=== PATIENT | male | born 1970 | race Caucasian/White ===

== ENCOUNTER 2021-02-28 15:54 | Emergency (ER) | payer MEDICAID ==
[~2021-02-28] VITALS: Ht 180.3 cm; Wt 95.3 kg
[2021-02-28 16:30] VITALS: BP 144/86
--- NOTE | 2021-02-28 16:30 | NUR ---
[facility] GIRLFRIEND C/O R LOWER ABDOMINAL BUMP "MY HERNIA IS GETTING WORSE". AOX4, NO SOB, NO S/O ANY ACUTE DISTRESS NOTED. DENIES PAIN. PATIENT KEPT COMFORTABLE. SAFETY PRECAUTIONS IN PLACE. WILL CONTINUE TO MONITOR
--- NOTE | 2021-02-28 16:41 | NUR ---
Patient discharged to home in stable condition. Written and verbal after care instructions given. Patient verbalizes understanding of instruction.
== END 2021-02-28 16:55 | disposition home or self-care (01) ==
LOC: ER 15:57
DX: K40.90 Unilateral inguinal hernia, without obstruction or gangrene, not specified as recurrent (principal); F19.10 Other psychoactive substance abuse, uncomplicated; F12.90 Cannabis use, unspecified, uncomplicated

== ENCOUNTER 2023-10-10 23:29 | Emergency (ER) | payer OTHER ==
[~2023-10-10] VITALS: Ht 180.3 cm; Wt 86.2 kg
[2023-10-10 23:41] VITALS: TEMP 98.1
[2023-10-11] MEDS ORDERED: ACETAMINOPHEN ES 500 MG TABLET ONE (00:08)
[2023-10-11] MEDS ORDERED: IBUPROFEN 600 MG TABLET ONE (00:09)
[2023-10-11] MEDS: ACETAMINOPHEN ES 500 MG TABLET PO ONE (00:11)
[2023-10-11] MEDS: IBUPROFEN 600 MG TABLET PO ONE (00:11)
[2023-10-11] MEDS ORDERED: IBUP-1957 PO (02:01)
[2023-10-11] MEDS ORDERED: ACET-2605 PO (02:01)
[2023-10-11 02:31] VITALS: BP 138/68; O2SAT 99
== END 2023-10-11 02:31 | disposition home or self-care (01) ==
LOC: ER 23:29
DX: S82.831A Other fracture of upper and lower end of right fibula, initial encounter for closed fracture (principal); F17.200 Nicotine dependence, unspecified, uncomplicated; W01.0XXA Fall on same level from slipping, tripping and stumbling without subsequent striking against object, initial encounter; Y93.89 Activity, other specified; Y92.89 Other specified places as the place of occurrence of the external cause; Y99.8 Other external cause status
CPT/HCPCS: 73610-TC; 73630-TC

== ENCOUNTER 2024-04-22 17:47 | Inpatient (IN) | payer OTHER ==
[~2024-04-22] VITALS: Ht 180.3 cm; Wt 88.2 kg
[~2024-04-22 17:47] MED LIST: ACET-2605 PO; IBUP-1957 PO
[2024-04-22 20:07] LABS: BASOPHILS % (AUTO) 0.3 % (0.0-2.0); EOSINOPHILS # (AUTO) 0.1 K/uL (0.0-0.7); EOSINOPHILS % (AUTO) 0.8 % (0.0-6.0); HEMATOCRIT 41 % (39-51); HEMOGLOBIN 13.7 g/dL (13.5-17.5); LYMPHOCYTES # (AUTO) 1.2 K/uL (0.8-4.8); LYMPHOCYTES % (AUTO) 15.2 % (20.0-44.0); MEAN CORPUSCULAR HEMOGLOBIN 31 PG (26.0-33.0); MEAN CORPUSCULAR HGB CONC 34 g/dl (31.0-36.0); MEAN CORPUSCULAR VOLUME 94 fL (80-96); MONOCYTES # (AUTO) 0.8 K/uL (0.1-1.30); NEUTROPHILS # (AUTO) 5.7 K/uL (1.8-8.9); NEUTROPHILS % (AUTO) 73.7 % (43.0-81.0); PLATELET COUNT (AUTO) 138 K/uL (150-450); RED BLOOD CELL COUNT(AUTO) 4.37 MIL/uL (4.5-6.0); RED CELL DISTRIBUTION WIDTH 14.2 % (11.5-15.0); WHITE BLOOD COUNT (AUTO) 7.7 K/uL (4.3-11.0)
[2024-04-22 20:20] LABS: ALBUMIN 3.1 g/dL (3.4-5.0); BILIRUBIN,DIRECT 0.2 mg/dL (0.0-0.2); BILIRUBIN,TOTAL 0.9 mg/dL (0.2-1.0); CALCIUM, SERUM 8.4 mg/dL (8.5-10.1); POTASSIUM 5.3 mmol/L (3.5-5.1)
[2024-04-22 20:23] LABS: CREATININE 15.6 mg/dL (0.6-1.3)
[2024-04-22 20:39] LABS: APPEARANCE,URINE CLEAR (CLEAR); BILIRUBIN,URINE NEGATIVE (NEGATIVE); BLOOD, URINE 3+ Ery/uL (NEGATIVE); COLOR,URINE YELLOW (YELLOW); KETONES,URINE NEGATIVE (NEGATIVE); LEUKOCYTE ESTERASE ,URINE NEGATIVE (NEGATIVE); NITRITE, URINE NEGATIVE (NEGATIVE); PROTEIN,URINE NEGATIVE (NEGATIVE); UGLUCOSE NEGATIVE (NEGATIVE); UROBILINOGEN,URINE 0.2 EU/dL (0.2)
[2024-04-22 20:50] LABS: MAGNESIUM 2.7 mg/dL (1.8-2.4)
[2024-04-22 20:55] LABS: PHOSPHORUS 11.1 mg/dL (2.5-4.9)
[2024-04-22] MEDS: IV NS 0.9% 1,000 ML BAG IV ONE (21:20)
[2024-04-22 21:21] LABS: RBC,URINE 51-80 /HPF (0-2)
[2024-04-22 21:22] LABS: ADD URINE CULTURE NO; BACTERIA,URINE None seen /HPF (None Seen); SQUAMOUS EPITHELIAL CELL,UR 0-2 /HPF (None Seen); WBC,URINE 0-2 /HPF (0-3)
[2024-04-22] MEDS ORDERED: ACETAMINOPHEN 325 MG TABLET PO PRN (22:30)
[2024-04-22] MEDS ORDERED: Z GUARD REMEDY 4 OZ OINT TP PRN (22:30)
[2024-04-22] MEDS ORDERED: MAG HYDROX/AL HYDROX/SIMETH 30 ML UDC PO PRN (22:30)
[2024-04-22] MEDS ORDERED: MAGNESIUM HYDROXIDE 30 ML UDC PO PRN (22:30)
[2024-04-22 22:58] VITALS: BP 146/76; TEMP 97.5; O2SAT 100
[2024-04-22] MEDS: TAMSULOSIN 0.4 MG CAP.SR.24H PO ONE (23:09)
[2024-04-22] MEDS: IV NS 0.9% 1,000 ML IV SCH (23:09)
[2024-04-22] MEDS: ONDANSETRON HCL/PF 4 MG/2 ML VIAL IVP PRN (23:10)
[2024-04-22] MEDS: HYDROMORPHONE 1 MG/1 ML DISP.SYRIN IV PRN (23:29)
[2024-04-23] MEDS: HYDROCODONE/APAP 5/325MG TABLET PO PRN (02:23)
[2024-04-23 04:51] VITALS: BP 122/68; TEMP 97.7; O2SAT 98
[2024-04-23 06:37] LABS: BASOPHILS % (AUTO) 0.2 % (0.0-2.0); EOSINOPHILS % (AUTO) 0.3 % (0.0-6.0); HEMATOCRIT 39 % (39-51); HEMOGLOBIN 13.1 g/dL (13.5-17.5); LYMPHOCYTES # (AUTO) 1.2 K/uL (0.8-4.8); LYMPHOCYTES % (AUTO) 14.7 % (20.0-44.0); MEAN CORPUSCULAR HEMOGLOBIN 32 PG (26.0-33.0); MEAN CORPUSCULAR HGB CONC 34 g/dl (31.0-36.0); MEAN CORPUSCULAR VOLUME 93 fL (80-96); MONOCYTES # (AUTO) 0.8 K/uL (0.1-1.30); MONOCYTES % (AUTO) 10.5 % (2.0-12.0); NEUTROPHILS # (AUTO) 5.9 K/uL (1.8-8.9); NEUTROPHILS % (AUTO) 74.3 % (43.0-81.0); PLATELET COUNT (AUTO) 130 K/uL (150-450); RED BLOOD CELL COUNT(AUTO) 4.17 MIL/uL (4.5-6.0); RED CELL DISTRIBUTION WIDTH 14.2 % (11.5-15.0); WHITE BLOOD COUNT (AUTO) 7.9 K/uL (4.3-11.0)
[2024-04-23 06:51] LABS: CALCIUM, SERUM 8.2 mg/dL (8.5-10.1); CREATININE 5.2 mg/dL (0.6-1.3); MAGNESIUM 2.7 mg/dL (1.8-2.4); PHOSPHORUS 4.4 mg/dL (2.5-4.9); POTASSIUM 4.7 mmol/L (3.5-5.1)
[2024-04-23 08:00] VITALS: BP 119/51; TEMP 98.2; O2SAT 96
[2024-04-23] MEDS ORDERED: TAMS-12 PO (08:54)
[2024-04-23] MEDS: POLYETHYLENE GLYCOL 3350 17 GM POWD.PACK PO SCH (09:00)
[2024-04-23 12:00] VITALS: BP 125/68; TEMP 97.9; O2SAT 98
[2024-04-23] MEDS: CITRIC ACID/SODIUM CITRATE (BICITRA)15 ML UDC PO SCH (13:39)
[2024-04-23 16:00] VITALS: BP 130/66; TEMP 98.2; O2SAT 98
[2024-04-23] MEDS: IV NS 0.9% 1,000 ML IV PRN (16:52)
[2024-04-23] MEDS: SUCRALFATE 1 G TABLET PO SCH (16:52)
[2024-04-23 20:00] VITALS: BP 138/78; TEMP 98.4; O2SAT 97
[2024-04-24] VITALS: BP 150/79; TEMP 98.6; O2SAT 99
[2024-04-24 07:01] LABS: BASOPHILS % (AUTO) 0.2 % (0.0-2.0); EOSINOPHILS # (AUTO) 0.1 K/uL (0.0-0.7); EOSINOPHILS % (AUTO) 1.4 % (0.0-6.0); HEMATOCRIT 39 % (39-51); HEMOGLOBIN 13.1 g/dL (13.5-17.5); LYMPHOCYTES # (AUTO) 1.9 K/uL (0.8-4.8); LYMPHOCYTES % (AUTO) 30.7 % (20.0-44.0); MEAN CORPUSCULAR HEMOGLOBIN 31 PG (26.0-33.0); MEAN CORPUSCULAR HGB CONC 34 g/dl (31.0-36.0); MEAN CORPUSCULAR VOLUME 92 fL (80-96); MONOCYTES # (AUTO) 0.7 K/uL (0.1-1.30); MONOCYTES % (AUTO) 11.1 % (2.0-12.0); NEUTROPHILS # (AUTO) 3.5 K/uL (1.8-8.9); NEUTROPHILS % (AUTO) 56.6 % (43.0-81.0); PLATELET COUNT (AUTO) 149 K/uL (150-450); RED BLOOD CELL COUNT(AUTO) 4.21 MIL/uL (4.5-6.0); RED CELL DISTRIBUTION WIDTH 13.9 % (11.5-15.0); WHITE BLOOD COUNT (AUTO) 6.1 K/uL (4.3-11.0)
[2024-04-24 08:00] VITALS: BP 136/78; TEMP 99.1; O2SAT 100
[2024-04-24 08:26] LABS: CALCIUM, SERUM 8.9 mg/dL (8.5-10.1); CREATININE 0.9 mg/dL (0.6-1.3); MAGNESIUM 2.2 mg/dL (1.8-2.4); POTASSIUM 4.8 mmol/L (3.5-5.1)
[2024-04-24 08:43] LABS: PHOSPHORUS 1.7 mg/dL (2.5-4.9)
[2024-04-24] MEDS: NEUTRA PHOS 1 POWD.PACKET PO ONE (09:24)
[2024-04-24] MEDS ORDERED: METR500T PO (11:23)
[2024-04-24] MEDS ORDERED: LEVO500T90 PO (11:23)
[2024-04-24] MEDS ORDERED: SUCR1TAB31 PO (11:23)
[2024-04-24] MEDS: Sodium Phosphate 30 MMOL in IV NS 0.9% 250 ML IV SCH (11:57)
[2024-04-24] MEDS: TAMSULOSIN 0.4 MG CAP.SR.24H PO SCH (11:58)
[2024-04-24 16:00] VITALS: BP 127/71; TEMP 98.2; O2SAT 99
== END 2024-04-24 17:13 | disposition home health service (06) | DRG 501 ==
LOC: ER 17:54 → TELE 22:26 → MED 04-24 05:13
PROVIDERS: ATTEND Internal Medicine
DX: N40.1 Benign prostatic hyperplasia with lower urinary tract symptoms (principal); N17.9 Acute kidney failure, unspecified; E83.39 Other disorders of phosphorus metabolism; E87.20 Acidosis, unspecified; E83.41 Hypermagnesemia; N13.8 Other obstructive and reflux uropathy; K59.00 Constipation, unspecified; E86.0 Dehydration; K29.70 Gastritis, unspecified, without bleeding; F12.90 Cannabis use, unspecified, uncomplicated; R33.8 Other retention of urine; E87.1 Hypo-osmolality and hyponatremia
CPT/HCPCS: 36415; 80048-TC; 80076-TC; 81001; 83690-TC; 83735-TC; 84100-TC; 85025-TC; 87081-TC; A4223; A9563; G0378; J1170; J2405; J7030; J7050

== ENCOUNTER 2024-06-16 17:06 | Emergency (ER) | payer OTHER ==
[~2024-06-16] VITALS: Ht 180.3 cm; Wt 90.3 kg
[~2024-06-16 17:06] MED LIST changes: -ACET-2605 PO; -IBUP-1957 PO; +LEVO500T90 PO; +METR500T PO; +SUCR1TAB31 PO; +TAMS-12 PO
[2024-06-16] MEDS ORDERED: LIDOCAINE 2% JEL UROJET 10 ML MM ONE (17:41)
[2024-06-16 19:12] LABS: APPEARANCE,URINE TURBID (CLEAR); BILIRUBIN,URINE NEGATIVE (NEGATIVE); BLOOD, URINE 3+ Ery/uL (NEGATIVE); COLOR,URINE YELLOW (YELLOW); KETONES,URINE NEGATIVE (NEGATIVE); LEUKOCYTE ESTERASE ,URINE 3+ (NEGATIVE); NITRITE, URINE NEGATIVE (NEGATIVE); PH,URINE 8.5 (5.0-8.0); PROTEIN,URINE 3+ mg/dl (NEGATIVE); UGLUCOSE NEGATIVE (NEGATIVE); UROBILINOGEN,URINE 0.2 EU/dL (0.2)
[2024-06-16 19:21] LABS: ADD URINE CULTURE YES; WBC,URINE 81-100 /HPF (0-3)
[2024-06-16 19:22] LABS: BACTERIA,URINE 1+ /HPF (None Seen); CALCIUM PHOSPHATE CRYSTALS,UR Few /HPF (None Seen); SQUAMOUS EPITHELIAL CELL,UR 0-2 /HPF (None Seen)
[2024-06-16] MEDS ORDERED: LEVO500T90 PO (19:33)
[2024-06-16 21:10] VITALS: BP 132/77; TEMP 98.1; O2SAT 100
== END 2024-06-16 21:11 | disposition home or self-care (01) ==
LOC: ER 17:20
DX: T83.9XXA Unspecified complication of genitourinary prosthetic device, implant and graft, initial encounter (principal); N39.0 Urinary tract infection, site not specified; F17.200 Nicotine dependence, unspecified, uncomplicated
CPT/HCPCS: 99284; 51702; 87086; 81001; J3490

== ENCOUNTER 2024-08-21 21:27 | Emergency (ER) | payer MEDICAID, OTHER ==
[~2024-08-21] VITALS: Ht 180.3 cm; Wt 83.9 kg
[2024-08-21 22:58] VITALS: BP 144/74; TEMP 98.3
[2024-08-21 23:06] VITALS: O2SAT 97
== END 2024-08-21 23:11 | disposition home or self-care (01) ==
LOC: ER 21:34
DX: T83.098A Other mechanical complication of other urinary catheter, initial encounter (principal); F19.10 Other psychoactive substance abuse, uncomplicated; Z60.2 Problems related to living alone; Y84.8 Other medical procedures as the cause of abnormal reaction of the patient, or of later complication, without mention of misadventure at the time of the procedure; Y92.89 Other specified places as the place of occurrence of the external cause

== ENCOUNTER 2024-09-04 23:16 | Emergency (ER) | payer OTHER | END 2024-09-05 01:41 | disposition left against medical advice (07) | LOC: ER 23:18 | DX: T83.038A Leakage of other urinary catheter, initial encounter (principal); Z53.21 Procedure and treatment not carried out due to patient leaving prior to being seen by health care provider ==

== ENCOUNTER 2024-11-22 01:21 | Emergency (ER) | payer OTHER ==
[~2024-11-22] VITALS: Ht 180.3 cm; Wt 83.9 kg
[2024-11-22 02:19] VITALS: BP 126/68; TEMP 98.9; O2SAT 96
== END 2024-11-22 02:38 | disposition home or self-care (01) ==
LOC: ER 01:33
DX: T83.031A Leakage of indwelling urethral catheter, initial encounter (principal); Z60.2 Problems related to living alone; Z79.899 Other long term (current) drug therapy; X58.XXXA Exposure to other specified factors, initial encounter

== ENCOUNTER 2024-11-28 08:31 | Emergency (ER) | payer OTHER ==
[~2024-11-28] VITALS: Ht 180.3 cm; Wt 83.9 kg
[2024-11-28] MEDS ORDERED: LIDOCAINE 2% JEL UROJET 10 ML MM ONE (08:46)
[2024-11-28 09:20] LABS: APPEARANCE,URINE TURBID (CLEAR); BILIRUBIN,URINE NEGATIVE (NEGATIVE); BLOOD, URINE 3+ Ery/uL (NEGATIVE); COLOR,URINE YELLOW (YELLOW); KETONES,URINE NEGATIVE (NEGATIVE); LEUKOCYTE ESTERASE ,URINE 1+ (NEGATIVE); NITRITE, URINE POSITIVE (NEGATIVE); PROTEIN,URINE 2+ mg/dl (NEGATIVE); UGLUCOSE NEGATIVE (NEGATIVE); UROBILINOGEN,URINE 0.2 EU/dL (0.2)
[2024-11-28 09:29] LABS: ADD URINE CULTURE YES; BACTERIA,URINE 1+ /HPF (None Seen); RBC,URINE 21-50 /HPF (0-2)
[2024-11-28 09:30] LABS: SQUAMOUS EPITHELIAL CELL,UR None Seen /HPF (None Seen); WBC,URINE 51-80 /HPF (0-3)
[2024-11-28] MEDS ORDERED: CEPH-570 PO (09:49)
[2024-11-28 10:29] VITALS: BP 128/78; TEMP 98.3; O2SAT 99
== END 2024-11-28 10:29 | disposition home or self-care (01) ==
LOC: ER 08:33
DX: T83.098A Other mechanical complication of other urinary catheter, initial encounter (principal); N39.0 Urinary tract infection, site not specified; R33.8 Other retention of urine; N40.1 Benign prostatic hyperplasia with lower urinary tract symptoms; F19.10 Other psychoactive substance abuse, uncomplicated; Z60.2 Problems related to living alone; Y84.8 Other medical procedures as the cause of abnormal reaction of the patient, or of later complication, without mention of misadventure at the time of the procedure; Y92.89 Other specified places as the place of occurrence of the external cause
CPT/HCPCS: 99284; 51702; 87077; 87086; 87186; 81001; J3490

== ENCOUNTER 2025-01-10 13:22 | Emergency (ER) | payer MEDICAID, OTHER ==
[~2025-01-10] VITALS: Ht 167.6 cm; Wt 102.1 kg
[~2025-01-10 13:22] MED LIST changes: +CEPH-570 PO
[2025-01-10 13:32] VITALS: BP 132/71; TEMP 98; O2SAT 98
== END 2025-01-10 13:50 | disposition home or self-care (01) ==
LOC: ER 13:42
DX: T83.091A Other mechanical complication of indwelling urethral catheter, initial encounter (principal); F19.10 Other psychoactive substance abuse, uncomplicated; Z60.2 Problems related to living alone; Y84.6 Urinary catheterization as the cause of abnormal reaction of the patient, or of later complication, without mention of misadventure at the time of the procedure; Y92.89 Other specified places as the place of occurrence of the external cause

== ENCOUNTER 2025-02-09 16:13 | Emergency (ER) | payer OTHER ==
[~2025-02-09] VITALS: Ht 180.3 cm; Wt 86.2 kg
[2025-02-09 16:50] VITALS: TEMP 98.3
[2025-02-09 17:51] LABS: APPEARANCE,URINE CLOUDY (CLEAR); BLOOD, URINE 3+ Ery/uL (NEGATIVE); LEUKOCYTE ESTERASE ,URINE 3+ (NEGATIVE); NITRITE, URINE NEGATIVE (NEGATIVE); UGLUCOSE NEGATIVE (NEGATIVE)
[2025-02-09] MEDS ORDERED: CEPH-570 PO (18:10)
[2025-02-09 18:11] LABS: ADD URINE CULTURE YES
[2025-02-09 18:12] LABS: SQUAMOUS EPITHELIAL CELL,UR 0-2 /HPF (None Seen); TRIPLE PHOSPHATE CRYSTAL,UR Few /HPF (None Seen)
[2025-02-09 18:13] VITALS: BP 127/70; O2SAT 98
== END 2025-02-09 18:13 | disposition home or self-care (01) ==
LOC: ER 16:22
DX: T83.098A Other mechanical complication of other urinary catheter, initial encounter (principal); N39.0 Urinary tract infection, site not specified; N40.0 Benign prostatic hyperplasia without lower urinary tract symptoms; F19.10 Other psychoactive substance abuse, uncomplicated; Z60.2 Problems related to living alone; Y84.8 Other medical procedures as the cause of abnormal reaction of the patient, or of later complication, without mention of misadventure at the time of the procedure; Y92.89 Other specified places as the place of occurrence of the external cause
CPT/HCPCS: 81001; 87086-TC; 87186-TC

== ENCOUNTER 2025-02-17 09:11 | Emergency (ER) | payer OTHER ==
[~2025-02-17] VITALS: Ht 149.9 cm; Wt 86.2 kg
[2025-02-17 10:46] LABS: APPEARANCE,URINE CLEAR (CLEAR); BLOOD, URINE 1+ Ery/uL (NEGATIVE); LEUKOCYTE ESTERASE ,URINE TRACE (NEGATIVE); NITRITE, URINE NEGATIVE (NEGATIVE); UGLUCOSE NEGATIVE (NEGATIVE)
[2025-02-17 10:50] LABS: PLATELET COUNT (AUTO) 168 K/uL (150-450); RED BLOOD CELL COUNT(AUTO) 4.73 MIL/uL (4.5-6.0); RED CELL DISTRIBUTION WIDTH 13.5 % (11.5-15.0); WHITE BLOOD COUNT (AUTO) 7.8 K/uL (4.3-11.0)
[2025-02-17 10:56] LABS: CALCIUM, SERUM 9.1 mg/dL (8.5-10.1); CREATININE 0.9 mg/dL (0.6-1.3); SODIUM SERUM 142.0 mmol/L (136-145); UREA NITROGEN, BLOOD 17.0 mg/dL (7-18)
[2025-02-17 11:02] LABS: ADD URINE CULTURE YES; SQUAMOUS EPITHELIAL CELL,UR 0-2 /HPF (None Seen)
[2025-02-17 11:30] VITALS: BP 144/90; TEMP 98.8; O2SAT 99
== END 2025-02-17 11:30 | disposition home or self-care (01) ==
LOC: ER 09:11
DX: T83.098A Other mechanical complication of other urinary catheter, initial encounter (principal); N40.0 Benign prostatic hyperplasia without lower urinary tract symptoms; N17.9 Acute kidney failure, unspecified; Z79.899 Other long term (current) drug therapy; Y92.89 Other specified places as the place of occurrence of the external cause
CPT/HCPCS: 36415; 80048-TC; 81001; 85025-TC; 87086-TC

== ENCOUNTER 2025-02-25 15:39 | Emergency (ER) | payer OTHER ==
[~2025-02-25] VITALS: Ht 180.3 cm; Wt 88.5 kg
[2025-02-25 15:44] VITALS: TEMP 98
[2025-02-25] MEDS ORDERED: LIDOCAINE 2% JEL UROJET 10 ML MM ONE (15:51)
[2025-02-25 16:34] LABS: APPEARANCE,URINE CLOUDY (CLEAR); BLOOD, URINE 2+ Ery/uL (NEGATIVE); LEUKOCYTE ESTERASE ,URINE 3+ (NEGATIVE); NITRITE, URINE NEGATIVE (NEGATIVE); UGLUCOSE NEGATIVE (NEGATIVE)
[2025-02-25 16:41] LABS: ADD URINE CULTURE YES; SQUAMOUS EPITHELIAL CELL,UR Few /HPF (None Seen)
[2025-02-25] MEDS ORDERED: CEPH-570 PO (17:22)
[2025-02-25 18:28] VITALS: BP 115/78; O2SAT 97
== END 2025-02-25 18:24 | disposition home or self-care (01) ==
LOC: ER 15:55
DX: T83.9XXA Unspecified complication of genitourinary prosthetic device, implant and graft, initial encounter (principal); N39.0 Urinary tract infection, site not specified; Z79.899 Other long term (current) drug therapy; Y92.89 Other specified places as the place of occurrence of the external cause
CPT/HCPCS: 99284; 51702; 87077; 87086; 87186; 81001; J3490

== ENCOUNTER 2025-03-12 01:09 | Emergency (ER) | payer OTHER ==
[~2025-03-12] VITALS: Ht 180.3 cm; Wt 93.0 kg
[2025-03-12 03:03] LABS: APPEARANCE,URINE CLOUDY (CLEAR); BLOOD, URINE 3+ Ery/uL (NEGATIVE); LEUKOCYTE ESTERASE ,URINE 2+ (NEGATIVE); NITRITE, URINE NEGATIVE (NEGATIVE); UGLUCOSE NEGATIVE (NEGATIVE)
[2025-03-12 03:18] LABS: ADD URINE CULTURE YES; SQUAMOUS EPITHELIAL CELL,UR Rare /HPF (None Seen)
[2025-03-12] MEDS ORDERED: LEVO500T90 PO (03:36)
[2025-03-12] MEDS ORDERED: LEVOFLOXACIN (250MG) 250 MG TABLET ONE (03:58)
[2025-03-12] MEDS: LEVOFLOXACIN (250MG) 250 MG TABLET PO ONE (04:03)
[2025-03-12 04:10] VITALS: BP 118/79; TEMP 98; O2SAT 97
== END 2025-03-12 04:11 | disposition home or self-care (01) ==
LOC: ER 01:13
DX: T83.89XA Other specified complication of genitourinary prosthetic devices, implants and grafts, initial encounter (principal); N40.0 Benign prostatic hyperplasia without lower urinary tract symptoms; N39.0 Urinary tract infection, site not specified; N18.9 Chronic kidney disease, unspecified; Y92.89 Other specified places as the place of occurrence of the external cause
CPT/HCPCS: 81001; 87086-TC; 87186-TC

== ENCOUNTER 2025-04-20 10:52 | Emergency (ER) | payer MEDICAID, OTHER ==
[~2025-04-20] VITALS: Ht 180.3 cm; Wt 86.2 kg
[2025-04-20 12:32] LABS: CALCIUM, SERUM 9.0 mg/dL (8.5-10.1); CREATININE 1.4 mg/dL (0.6-1.3); SODIUM SERUM 139 mmol/L (136-145); UREA NITROGEN, BLOOD 16 mg/dL (7-18)
[2025-04-20 12:42] LABS: PLATELET COUNT (AUTO) 165 K/uL (150-450); RED BLOOD CELL COUNT(AUTO) 4.88 MIL/uL (4.5-6.0); RED CELL DISTRIBUTION WIDTH 13.9 % (11.5-15.0); WHITE BLOOD COUNT (AUTO) 9.9 K/uL (4.3-11.0)
[2025-04-20 14:23] LABS: APPEARANCE,URINE CLEAR (CLEAR); BLOOD, URINE 3+ Ery/uL (NEGATIVE); LEUKOCYTE ESTERASE ,URINE 1+ (NEGATIVE); NITRITE, URINE POSITIVE (NEGATIVE); UGLUCOSE NEGATIVE (NEGATIVE)
[2025-04-20 14:34] LABS: ADD URINE CULTURE YES
[2025-04-20 14:55] VITALS: BP 120/80; TEMP 98.5; O2SAT 99
== END 2025-04-20 14:57 | disposition home or self-care (01) ==
LOC: ER 10:52
DX: T83.098A Other mechanical complication of other urinary catheter, initial encounter (principal); N39.0 Urinary tract infection, site not specified; R55 Syncope and collapse; F19.10 Other psychoactive substance abuse, uncomplicated; Y84.6 Urinary catheterization as the cause of abnormal reaction of the patient, or of later complication, without mention of misadventure at the time of the procedure; Y92.89 Other specified places as the place of occurrence of the external cause
CPT/HCPCS: 36415; 71045-TC; 80048-TC; 81001; 82962-TC; 84484-TC; 85025-TC; 87086-TC; 87186-TC

== ENCOUNTER 2025-05-07 21:49 | Emergency (ER) | payer OTHER ==
[~2025-05-07] VITALS: Ht 180.3 cm; Wt 83.9 kg
[2025-05-07 22:47] LABS: APPEARANCE,URINE SLIGHTLY CLOUDY (CLEAR); BLOOD, URINE 3+ Ery/uL (NEGATIVE); LEUKOCYTE ESTERASE ,URINE 2+ (NEGATIVE); NITRITE, URINE POSITIVE (NEGATIVE); UGLUCOSE NEGATIVE (NEGATIVE)
[2025-05-07] MEDS ORDERED: CIPR-262 PO (22:54)
[2025-05-07] MEDS ORDERED: CIPROFLOXACIN HCL 500 MG TABLET ONE (22:57)
[2025-05-07] MEDS: CIPROFLOXACIN HCL 500 MG TABLET PO ONE (22:58)
[2025-05-07 23:03] VITALS: BP 130/85; TEMP 98.5; O2SAT 96
[2025-05-07 23:05] LABS: ADD URINE CULTURE YES
== END 2025-05-07 23:04 | disposition home or self-care (01) ==
LOC: ER 21:50
DX: T83.9XXA Unspecified complication of genitourinary prosthetic device, implant and graft, initial encounter (principal); N39.0 Urinary tract infection, site not specified; Y84.6 Urinary catheterization as the cause of abnormal reaction of the patient, or of later complication, without mention of misadventure at the time of the procedure
CPT/HCPCS: 81001; 87086-TC